=== PATIENT | female | born 1925 | race Caucasian/White ===

== ENCOUNTER 2016-12-31 09:00 | Emergency (ER) | payer MEDICARE, OTHER ==
[2016-12-31 09:00] VITALS: BP 161/94
[~2016-12-31 09:00] MED LIST: ACET325T21 PO; ACET325T9 PO; ASPI325T11 PO; BUTA1CAP57 PO; CETI10TA16 PO; ERGO500012 PO; FURO-68 PO; FURO40TA4 PO; GUAI120S PO; HYDR-2869 PO; LEVO25TA4 PO; LEVO750T31 PO; METH57CR8 TP; METO25TA4 PO; NYST15CR2 TP; Sodium Bicarbonate PO; VIT D2
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
--- NOTE | 2016-12-31 11:22 | RAD ---
SHOULDER 2+V LEFT Clinical Indication: fall/pain Comparison: September 28, 2014. Technique: Internal and external rotational and Y scapular views of the left shoulder are obtained. Findings: No acute fracture or dislocation is seen. Glenohumeral and acromioclavicular joints are maintained. No interval acute change is seen when compared to the previous exam. Overlying soft tissues demonstrate no acute finding. Visualized ribs are intact. Visualized lung is clear. IMPRESSION: No acute osseous injury seen.
== END 2016-12-31 11:58 | disposition home or self-care (01) ==
LOC: ER 09:00
DX: S80.02XA Contusion of left knee, initial encounter (principal); S80.01XA Contusion of right knee, initial encounter; S00.211A Abrasion of right eyelid and periocular area, initial encounter; M79.606 Pain in leg, unspecified; M25.512 Pain in left shoulder; F03.90 Unspecified dementia, unspecified severity, without behavioral disturbance, psychotic disturbance, mood disturbance, and anxiety; I10 Essential (primary) hypertension; I48.91 Unspecified atrial fibrillation; R41.0 Disorientation, unspecified; W06.XXXA Fall from bed, initial encounter; Y93.89 Activity, other specified; Y92.89 Other specified places as the place of occurrence of the external cause; Y99.8 Other external cause status
CPT/HCPCS: 73030; 99284